=== PATIENT | male | born 1965 | race Caucasian/White ===

== ENCOUNTER 2021-02-05 09:58 | Emergency (ER) | payer OTHER ==
[2021-02-05 10:47] LABS: Absolute Lymphocytes (CBC) 2.2 K/uL (0.7-4.9); Basophils % 1.3 % (0-1.3); Hematocrit 45.5 % (39.6-49.0); Lymphocytes % 30.2 % (15.3-44.8); MPV 8.9 fL (7.6-11.3)
[2021-02-05] MEDS ORDERED: NA CHLORIDE 0.9% 500 ML ONE (11:02)
[2021-02-05] MEDS ORDERED: MORPHINE 2 MG/ML SYR ONE (11:02)
[2021-02-05 11:33] LABS: ALT/SGPT 24 U/L (12-78); AST/SGOT 16 U/L (15-37); Albumin 3.3 g/dL (3.4-5.0); Alkaline Phosphatase 58 U/L (45-117); BUN Blood Urea Nitrogen 11 mg/dL (7-18); Bicarbonate 25 mmol/L (21-32); Bilirubin Direct < 0.1 mg/dL (0-0.2); Bilirubin Total 0.5 mg/dL (0.2-1.0); Glucose Level 101 mg/dL (74-106); Lipase 54 U/L (73-393); Potassium 3.6 mmol/L (3.5-5.1); Protein, Total 7.3 g/dL (6.4-8.2); Sodium Level 142 mmol/L (136-145)
--- NOTE | 2021-02-05 12:29 | RAD REPORT ---
EXAM DESCRIPTION: CT - Abdomen Pelvis W Contrast - 02/05/2021 11:58 am CLINICAL HISTORY: left lower abdomen pain COMPARISON: No comparisons TECHNIQUE: Biphasic, helical CT imaging of the abdomen and pelvis was performed following 100 ml non -ionic IV contrast. No oral contrast administered. All CT scans are performed using dose optimization technique as appropriate and may include automated exposure control or mA/KV adjustment according to patient size. FINDINGS: No suspicious findings in the lung bases. Mild diffuse fatty infiltration present in the liver with no focal liver lesions. Spleen and pancreas show no suspicious findings. Gallbladder and biliary tree are also without suspicious finding. Symmetric renal function is seen with no hydronephrosis or suspicious renal mass. A 6 mm nonobstructi ng calculus is present lower pole of the left kidney. No pyelonephritis or acute parenchymal process. No bladder abnormalities. No adrenal abnormalities. No stomach or small bowel abnormality. No appendicitis. From cecum through the mid descending colon n o abnormality seen. In the distal descending colon there is a 3- 4 centimeter long segment of circumf erential wall thickening with stranding and edema in the adjacent fat. Sigmoid colon shows prominent diverticulosis without acute finding. No rectum abnormality seen. No free air or pneumatosis. No other area of inflammatory stranding. No hernia, mass or bulky lympha denopathy. No suspicious bony findings. IMPRESSION: Diverticulitis findings are present at the distal descending colon. No abscess, free air or surgically emergent finding. Colon findings favor diverticulitis. Colon malignancy is a lesser consideration; however, follow-up c olonoscopy may be needed after medical management to assure no malignant etiology. Fatty infiltration of the liver.
--- NOTE | 2021-02-05 13:13 | EDPHYS ---
Physician Documentation [facility] Name: Pablo Stein Age: 55 yrs Sex: Male : 1965 Arrival Date: 02/05/2021 Time: 10:04 Bed 5 Private MD: ED Physician Elijah Estrada HPI: 02/05 10:27 This 55 yrs old Male presents to ER via Ambulatory with complaints of Left cp side pain. 10:27 The patient presents with abdominal pain in the left lower quadrant. Onset: The cp symptoms/episode began/occurred gradually, and became worse yesterday. The symptoms do not radiate. Associated signs and symptoms: Pertinent negatives: nausea and vomiting, anorexia, blood in stools, constipation, diarrhea, dysuria, fever, hematuria, testicular pain, low back pain. The symptoms are described as "grabbing". Modifying factors: the symptoms are aggravated by moving and turning to right. Historical: - Allergies: 10:26 No Known Allergies; jd3 - Home Meds: 10:26 None [Active]; jd3 - PMHx: 10:26 None; jd3 - PSHx: 10:26 right shoulder; jd3 - Immunization history:: Adult Immunizations up to date. - Social history:: Smoking status: Patient denies any tobacco usage or history of. ROS: 10:28 Eyes: Negative for injury, pain, redness, and discharge. cp 10:28 Constitutional: Negative for body aches, chills, fever, poor PO intake. 10:28 Cardiovascular: Negative for chest pain, palpitations. 10:28 Respiratory: Negative for cough, shortness of breath, wheezing. 10:28 Abdomen/GI: Positive for abdominal pain, of the left lower quadrant, Negative for nausea, vomiting, and diarrhea, constipation. 10:28 Skin: Negative for rash. 10:28 Neuro: Negative for altered mental status, headache, weakness. 10:28 All other systems are negative. Exam: 10:30 Head/Face: Normocephalic, atraumatic. cp 10:30 Constitutional: The patient appears in no acute distress, alert, awake, non-toxic, well developed, well nourished, obese. 10:30 Eyes: Periorbital structures: appear normal, Conjunctiva: normal, no exudate, no injection, Sclera: no appreciated abnormality, Lids and lashes: appear normal, bilaterally. 10:30 ENT: External ear(s): are unremarkable, Nose: is normal, Posterior pharynx: Airway: no evidence of obstruction, patent. 10:30 Chest/axilla: Inspection: normal, Palpation: is normal, no crepitus, no tenderness. 10:30 Cardiovascular: Rate: normal, Rhythm: regular. 10:30 Respiratory: the patient does not display signs of respiratory distress, Respirations: normal, no use of accessory muscles, no retractions, labored breathing, is not present. 10:30 Abdomen/GI: Inspection: obese Bowel sounds: active, all quadrants, Palpation: soft, in all quadrants, mild abdominal tenderness, in the left lower quadrant, rebound tenderness, is not appreciated, voluntary guarding, is not appreciated, involuntary guarding, is not appreciated. 10:30 Back: pain, is absent, ROM is normal. Vital Signs: 10:26 BP 144 / 96; Pulse 74; Resp 17 S; Temp 98.7(O); Pulse Ox 97% on R/A; Weight 149.69 kg jd3 (R); Height 5 ft. 9 in. (175.26 cm) (R); Pain 7/10; 11:33 BP 132 / 78; Pulse 73; Resp 16 S; Pulse Ox 97% on R/A; jd3 14:24 BP 127 / 98; Pulse 67; Resp 17 S; Pulse Ox 97% on R/A; jd3 10:26 Body Mass Index 48.73 (149.69 kg, 175.26 cm) jd3 MDM: 10:19 Patient medically screened. cp 11:00 Differential diagnosis: diverticulitis, non-specific abd pain, pancreatitis, Testicular cp Torsion, Ureterolithiasis, urinary tract infection, colitis. 13:10 Data reviewed: vital signs, nurses notes, lab test result(s), radiologic studies, CT cp scan. 13:10 Counseling: I had a detailed discussion with the patient and/or guardian regarding: the cp historical points, exam findings, and any diagnostic results supporting the discharge/admit diagnosis, lab results, radiology results, the need for outpatient follow up, a building construction supervisor, to return to the emergency department if symptoms worsen or persist or if there are any questions or concerns that arise at home. Response to treatment: the patient's symptoms have markedly improved after treatment, and as a result, I will discharge patient. 02/05 10:27 Order name: Basic Metabolic Panel; Complete Time: 12:31 cp 02/05 10:27 Order name: CBC with Diff; Complete Time: 12:31 cp 02/05 10:27 Order name: Hepatic Function; Complete Time: 12:31 cp 02/05 10:27 Order name: Lipase; Complete Time: 12:31 cp 02/05 10:27 Order name: CT Abd/Pelvis - IV Contrast Only; Complete Time: 12:31 cp 02/05 10:27 Order name: IV Saline Lock; Complete Time: 10:43 cp 02/05 10:27 Order name: Labs collected and sent; Complete Time: 10:43 cp 02/05 12:53 Order name: PO challenge; Complete Time: 13:33 cp Administered Medications: 10:52 Drug: NS 0.9% 500 ml Route: IV; Rate: bolus; Site: right forearm; jd3 11:50 Follow up: Response: No adverse reaction; IV Status: Completed infusion; IV Intake: jd3 500ml 10:53 Drug: morphine 2 mg Route: IVP; Site: right forearm; jd3 11:50 Follow up: Response: No adverse reaction; RASS: Alert and Calm (0) jd3 13:32 Drug: Cipro (ciprofloxacin) 500 mg Route: PO; jd3 14:00 Follow up: Response: No adverse reaction jd3 13:32 Drug: metroNIDAZOLE 500 mg Volume: 100 ml; Route: IVPB; Infused Over: 30 mins; Site: [facility] right forearm; 14:00 Follow up: Response: No adverse reaction; IV Status: Completed infusion jd3 13:32 Drug: Bentyl 20 mg Route: PO; jd3 14:20 Follow up: Response: No adverse reaction jd3 Disposition: 02/05/21 13:12 Discharged to Home. Impression: Diverticulitis of large intestine without perforation or abscess without bleeding. - Condition is Stable. - Discharge Instructions: High-Fiber Diet, Diverticulitis. - Prescriptions for Bentyl 20 mg Oral Tablet - take 1 tablet by ORAL route every 6 hours As needed; 30 tablet. Zofran 4 mg Oral Tablet - take 1 tablet by ORAL route every 12 hours As needed; 20 tablet. Cipro 500 mg Oral Tablet - take 1 tablet by ORAL route every 12 hours for 7 days; 14 tablet. Metronidazole 500 mg Oral Tablet - take 1 tablet by ORAL route every 8 hours; 30 tablet. - Medication Reconciliation Form, Thank You Letter, Antibiotic Education, Prescription Opioid Use form. - Follow up: Jorge Gonzalez MD; When: 2 - 3 days; Reason: Recheck today's complaints. - Problem is new. - Symptoms have improved. Addendum: 02/09/2021 19:33 Co-signature as Attending Physician, Elijah Estrada MD. m a2 Signatures: Dispatcher [employer] EDMS Juanpablo Calderon PA PA cp Davies, Jonathon, RN RN jd3 Natalie, MD SARBJIT Nava ma2 Corrections: (The following items were deleted from the chart) 02/05 14:25 13:12 02/05/2021 13:12 Discharged to Home. Impression: Diverticulitis of large jd3 intestine without perforation or abscess without bleeding. Condition is Stable. Forms are Medication Reconciliation Form, Thank You Letter, Antibiotic Education, Prescription Opioid Use. Follow up: Jorge Gonzalez; When: 2 - 3 days; Reason: Recheck today's complaints. Problem is new. Symptoms have improved. cp
--- NOTE | 2021-02-05 13:13 | ER ---
Nurse's Notes [facility] Name: Pablo Stein Age: 55 yrs Sex: Male : 1965 Arrival Date: 02/05/2021 Time: 10:04 Bed 5 Private MD: Diagnosis: Diverticulitis of large intestine without perforation or abscess without bleeding Presentation: 02/05 10:21 Chief complaint: Patient states: "about a month ago I started feeling this pain when jd3 having a BM on my lower left side of my stomach that felt like a knot and painful until I held on to it. here in the last couple of days I have been having that pain especially when moving or turning side to side. I had a family member almost of diverticulitis and I just wanted to make sure that isn't what I have.". Coronavirus screen: At this time, the client does not indicate any symptoms associated with coronavirus-19. Ebola Screen: Patient negative for fever greater than or equal to 101.5 degrees Fahrenheit, and additional compatible Ebola Virus Disease symptoms. Initial Sepsis Screen: Does the patient meet any 2 criteria? No. Patient's initial sepsis screen is negative. Does the patient have a suspected source of infection? No. Patient's initial sepsis screen is negative. Risk Assessment: Do you want to hurt yourself or someone else? Patient reports no desire to harm self or others. Onset of symptoms was February 03, 2021. 10:21 Method Of Arrival: Ambulatory jd3 10:21 Acuity: ELA 3 jd3 Historical: - Allergies: 10:26 No Known Allergies; jd3 - Home Meds: 10:26 None [Active]; jd3 - PMHx: 10:26 None; jd3 - PSHx: 10:26 right shoulder; jd3 - Immunization history:: Adult Immunizations up to date. - Social history:: Smoking status: Patient denies any tobacco usage or history of. Screenin:29 Abuse screen: Denies threats or abuse. Nutritional screening: No deficits noted. jd3 Tuberculosis screening: No symptoms or risk factors identified. Fall Risk Ambulatory Aid- None/Bed Rest/Nurse Assist (0 pts). Gait- Normal/Bed Rest/Wheelchair (0 pts) Mental Status- Oriented to own ability (0 pts). Total Sebastian Fall Scale indicates No Risk (0-24 pts). Assessment: 10:27 General: Appears in no apparent distress. comfortable, Behavior is calm, cooperative, jd3 appropriate for age. Pain: Complains of pain in left lower quadrant Quality of pain is described as aching, tender, Alleviated by pressure to painful area. Neuro: Level of Consciousness is awake, alert, obeys commands, Oriented to person, place, time, situation. Cardiovascular: Denies chest pain, Capillary refill < 3 seconds Patient's skin is warm and dry. Respiratory: Airway is patent Respiratory effort is even, unlabored, Respiratory pattern is regular, symmetrical, Denies cough, shortness of breath. GI: Abdomen is round non-distended, Abd is soft and non tender X 4 quads. Reports lower abdominal pain, constipation, Patient currently denies bloody stool, diarrhea, intolerance of fluids, intolerance of food, nausea, rectal bleeding, vomiting. : No signs and/or symptoms were reported regarding the genitourinary system. EENT: No signs and/or symptoms were reported regarding the EENT system. Derm: Skin is intact, Skin is dry, Skin is normal, Skin temperature is warm. Musculoskeletal: Circulation, motion, and sensation intact. Range of motion: intact in all extremities. 11:34 Reassessment: Patient appears in no apparent distress at this time. No changes from jd3 previously documented assessment. Patient and/or family updated on plan of care and expected duration. Pain level reassessed. Patient is alert, oriented x 3, equal unlabored respirations, skin warm/dry/pink. 14:23 Reassessment: Patient appears in no apparent distress at this time. Patient and/or jd3 family updated on plan of care and expected duration. Pain level reassessed. Patient is alert, oriented x 3, equal unlabored respirations, skin warm/dry/pink. Patient states feeling better. Vital Signs: 10:26 BP 144 / 96; Pulse 74; Resp 17 S; Temp 98.7(O); Pulse Ox 97% on R/A; Weight 149.69 kg jd3 (R); Height 5 ft. 9 in. (175.26 cm) (R); Pain 7/10; 11:33 BP 132 / 78; Pulse 73; Resp 16 S; Pulse Ox 97% on R/A; jd3 14:24 BP 127 / 98; Pulse 67; Resp 17 S; Pulse Ox 97% on R/A; jd3 10:26 Body Mass Index 48.73 (149.69 kg, 175.26 cm) jd3 ED Course: 10:04 Patient arrived in ED. am2 10:14 Juanpablo Calderon PA is PHCP. cp 10:14 Elijah Estrada MD is Attending Physician. cp 10:21 Stan Taylor, ROLY is Primary Nurse. jd3 10:25 Triage completed. jd3 10:27 Arm band placed on. jd3 10:29 Patient has correct armband on for positive identification. Bed in low position. Call jd3 light in reach. Side rails up X2. Pulse ox on. NIBP on. 10:40 Inserted saline lock: 20 gauge in right forearm, using aseptic technique. Blood jd3 collected. 11:59 CT Abd/Pelvis - IV Contrast Only In Process Unspecified. EDMS 13:11 Jorge Gonzalez MD is Referral Physician. cp 14:24 No provider procedures requiring assistance completed. IV discontinued, intact, jd3 bleeding controlled, No redness/swelling at site. Pressure dressing applied. Administered Medications: 10:52 Drug: NS 0.9% 500 ml Route: IV; Rate: bolus; Site: right forearm; jd3 11:50 Follow up: Response: No adverse reaction; IV Status: Completed infusion; IV Intake: jd3 500ml 10:53 Drug: morphine 2 mg Route: IVP; Site: right forearm; jd3 11:50 Follow up: Response: No adverse reaction; RASS: Alert and Calm (0) jd3 13:32 Drug: Cipro (ciprofloxacin) 500 mg Route: PO; jd3 14:00 Follow up: Response: No adverse reaction jd3 13:32 Drug: metroNIDAZOLE 500 mg Volume: 100 ml; Route: IVPB; Infused Over: 30 mins; Site: jd3 right forearm; 14:00 Follow up: Response: No adverse reaction; IV Status: Completed infusion jd3 13:32 Drug: Bentyl 20 mg Route: PO; jd3 14:20 Follow up: Response: No adverse reaction jd3 Intake: 11:50 IV: 500ml; Total: 500ml. jd3 Outcome: 13:12 Discharge ordered by . cp 14:24 Discharged to home ambulatory, with family. jd3 14:24 Condition: stable 14:24 Discharge instructions given to patient, Instructed on discharge instructions, follow up and referral plans. medication usage, Demonstrated understanding of instructions, follow-up care, medications, Prescriptions given X 4. 14:25 Patient left the ED. jd3 Signatures: Dispatcher [employer] EDMS Juanpablo Calderon PA PA cp Moreno, Amanda am2 Davies, Jonathon RN RN jd3
[2021-02-05] MEDS ORDERED: CIPROFLOXACIN HCL 500 MG TAB ONE (13:35)
[2021-02-05] MEDS ORDERED: DICYCLOMINE HCL 10 MG CAP ONE (13:36)
[2021-02-05] MEDS ORDERED: METRONIDAZOLE 500mg IVPB 500 MG/100 ML BAG IV ONE (13:36)
[2021-02-05 14:29] VITALS: TEMP 98.7; O2SAT 97
[2021-02-05 14:36] VITALS: BP 127/98
== END 2021-02-05 14:25 | disposition home or self-care (01) ==
LOC: ER 09:58
DX: K57.32 Diverticulitis of large intestine without perforation or abscess without bleeding (principal)
CPT/HCPCS: 96365; 96361; 85025; 80048; 36415; 80076; 83690; 74177; 96375; 99284; Q9967; J2270; J7040